=== PATIENT | male | born 1970 | race Caucasian/White ===

== ENCOUNTER 2018-05-25 18:01 | Emergency (ER) | payer MEDICARE ==
[~2018-05-25] VITALS: Ht 172.7 cm; Wt 81.8 kg
[2018-05-25 18:04] VITALS: Ht 172.7 cm; Wt 81.8 kg
[2018-05-25] MEDS ORDERED: NAPROSYN500 MG PO (20:23)
[2018-05-25] MEDS ORDERED: ROBAXIN500 MG PO (20:23)
[2018-05-25 21:05] VITALS: BP 138/93
== END 2018-05-25 21:05 | disposition home or self-care (01) ==
LOC: D.ER 18:01
DX: M79.602 Pain in left arm (principal)

== ENCOUNTER → 2018-06-21 12:21 | Outpatient (CLI) | payer MEDICARE ==
[2018-05-25 18:04] VITALS: BMI 27.4
[~2018-06-21 12:21] MED LIST: NAPROSYN500 MG PO; ROBAXIN500 MG PO
== END | disposition home or self-care (01) ==
LOC: D.MRI 06-04 13:00
DX: M47.22 Other spondylosis with radiculopathy, cervical region (principal)